=== PATIENT | female | born 2000 ===

== ENCOUNTER 2024-10-11 11:14 | Day surgery (SDC) | payer OTHER ==
[2024-10-11] MEDS ORDERED: POVIDONE-IODINE 118 ML BOTT TOP ONE (13:00)
[2024-10-11] MEDS ORDERED: LIDOCAINE HCL 1%/EPINEPHRINE 20ML VIAL IJ ONE (13:23)
[2024-10-11] MEDS ORDERED: BUPIVACAINE HCL/Mpf 0.5% 10ML VIAL ONE (13:23)
[2024-10-11] MEDS ORDERED: KETOROLAC TROMETHAMINE 30 MG VIAL IV STA (14:25)
[2024-10-11] MEDS ORDERED: KETOROLAC TROMETHAMINE 30 MG VIAL ONE (16:02)
== END 2024-10-11 17:20 | disposition home or self-care (01) ==
LOC: CIR.AMB 11:14
PROVIDERS: ATTEND Obstetrics & Gynecology
DX: N75.0 Cyst of Bartholin's gland (principal); N75.1 Abscess of Bartholin's gland; F41.9 Anxiety disorder, unspecified